=== PATIENT | female | born 1955 | race Caucasian/White ===

== ENCOUNTER → 2021-08-06 | Outpatient (CLI) | payer BC, OTHER ==
--- NOTE | 2021-08-06 11:37 | XR ---
EXAMINATION TYPE: XR ankle complete LT DATE OF EXAM: 08/06/2021 COMPARISON: None HISTORY: Nonhealing wound left ankle TECHNIQUE: 3 view left ankle FINDINGS: There is a ankle prosthesis present. Osseous structures appear intact. No acute fracture is identified. No suspicious cortical erosion is identified. In the oblique view medial portion of the distal fibula may have a lucency and Jori's abscess could be considered. Soft tissues appear normal . IMPRESSION: 1. Possible lucency within the distal fibula could be a Jori's abscess. 2. No additional areas suspicious for osteomyelitis is evident.
== END | disposition home or self-care (01) ==
LOC: RADXRMAIN 10:47
PROVIDERS: ATTEND Thoracic Surgery (Cardiothoracic Vascular Surgery)
DX: L97.329 Non-pressure chronic ulcer of left ankle with unspecified severity (principal)

== ENCOUNTER → 2021-08-13 | Outpatient (CLI) | payer OTHER ==
--- NOTE | 2021-08-20 10:36 | P.ARTDOP ---
Arterial Doppler LOWER EXTREMITY ARTERIAL DOPPLER: DATE OF SERVICE: 08/13/2021 Reason for study: Ulcer left ankle. Doppler waveforms: Multiphasic bilaterally throughout.. Pulse volume recording: []. Pressure gradients: Only at the foot level. Ankle-brachial indices: Greater than 1 bilaterally. Toe brachial indices: 0.46 on the right, [] on the left Impression: Findings suggest normal flow in major vessels. Suspect significant peripheral vasoconstriction. Diffuse distal disease less likely..
== END | disposition home or self-care (01) ==
LOC: RADUSWWP 10:09
PROVIDERS: ATTEND Thoracic Surgery (Cardiothoracic Vascular Surgery)
DX: L97.329 Non-pressure chronic ulcer of left ankle with unspecified severity (principal)
CPT/HCPCS: 93922

== ENCOUNTER → 2021-08-28 | Outpatient (CLI) | payer OTHER ==
--- NOTE | 2021-08-28 13:31 | NM ---
EXAMINATION TYPE: NM bone 3 phase DATE OF EXAM: 08/28/2021 COMPARISON: NONE HISTORY: L97.325 non pressure ulcer L ankle Triple phase bone scintigraphy was performed following the injection of 22.5 mCi Tc 99m MDP. Immedia te images and 5 hours post injection images acquired. FINDINGS: On all 3 phases of the study there is increased radiotracer about the distal left tibia about the pat ient's prosthesis. Periprosthetic infection is difficult to exclude. No fibular uptake seen. Mild deg enerative change noted about the bilateral mid feet and right ankle. IMPRESSION: On all 3 phases of the study there is increased radiotracer about the distal left tibia about the pat ient's prosthesis. Periprosthetic infection is difficult to exclude.
== END | disposition home or self-care (01) ==
LOC: RADNMMAIN 07:27
PROVIDERS: ATTEND Thoracic Surgery (Cardiothoracic Vascular Surgery)
DX: L97.325 Non-pressure chronic ulcer of left ankle with muscle involvement without evidence of necrosis (principal)
CPT/HCPCS: 78315; A9503

== ENCOUNTER → 2021-09-09 | Outpatient (CLI) | payer OTHER ==
[2021-09-09 20:24] LABS: Basophils # (A) 0.06 X 10*3/uL (0.00-0.10); Basophils % (A) 0.8 %; Eosinophils # (A) 0.29 X 10*3/uL (0.04-0.35); Eosinophils % (A) 3.7 %; HCT 35.7 % (37.2-46.3); HGB 10.2 g/dL (12.0-15.0); Lymphocytes # (A) 1.51 X 10*3/uL (0.90-5.00); Lymphocytes % (A) 19.2 %; MCH 21.8 pg (27.0-32.0); MCHC 28.6 g/dL (32.0-37.0); MCV 76.3 fL (80.0-97.0); Mean Platelet Volume 10.8 fL (9.5-12.2); Monocytes # (A) 0.49 X 10*3/uL (0.20-1.00); Monocytes % (A) 6.2 %; Neutrophils % (A) 69.8 %; Platelet Count 566 X 10*3/uL (140-440); RBC 4.68 X 10*6/uL (4.10-5.20); RDW 18.6 % (11.5-14.5); WBC 7.87 X 10*3/uL (4.50-10.00)
[2021-09-09 21:29] LABS: Erythrocyte Sedimentation Rate 37 mm/Hr (0-30)
== END | disposition home or self-care (01) ==
LOC: LABWHC1 13:23
PROVIDERS: ATTEND Orthopaedic Surgery Foot and Ankle Surgery
DX: Z47.1 Aftercare following joint replacement surgery (principal); M19.072 Primary osteoarthritis, left ankle and foot; T81.31XA Disruption of external operation (surgical) wound, not elsewhere classified, initial encounter; Z96.662 Presence of left artificial ankle joint; Y69 Unspecified misadventure during surgical and medical care
CPT/HCPCS: 36415; 85025; 85652; 86140

== ENCOUNTER → 2021-09-26 | Outpatient (CLI) | payer OTHER ==
--- NOTE | 2021-09-26 12:47 | CT ---
EXAMINATION TYPE: CT ankle LT wo/w con DATE OF EXAM: 09/26/2021 COMPARISON: Left ankle surgery May 2020 with persistent pain, nonhealing. HISTORY: Osteomyelitis CT DLP: 396.4 mGycm Automated exposure control for dose reduction was used. CONTRAST: Performed without and with IV Contrast, patient injected with 100 mL of Isovue 300. FINDINGS: Gambell osseous structures are demineralized. Metallic hardware in the distal tibia is present, additi onal metallic hardware in the talar dome. Both cause streak artifact. There is overlying gauze and ba ndage material anteriorly. There is focal defect or packing material in the anterior aspect of the di stal tibia. There is moderate heterogeneous soft tissue swelling surrounding this with some bony dest ruction involving the anterior aspect of the distal tibia. Bony destruction extends to the anterior p ortion of the distal tibial prosthesis axial image 33. This involves the anterior portion of the tibi al tray sagittal image 40. Radiolucent component prosthesis at level of the ankle mortise.. Incidental large inferior calcaneal spur. There is prominent vertical lucent component distal to the tibial component extending into the central calcaneus to the anterior subtalar joint could reflect pr oduct of old surgical change. No suspicious bony destruction in the fibula or the talus. Moderate narrowing at the talonavicular james int incidentally seen. IMPRESSION: Open soft tissue the anterior distal tibia with surrounding soft tissue swelling, there i s bony destruction extending to the prosthesis suspicious for infectious process or osteomyelitis.
== END | disposition home or self-care (01) ==
LOC: RADCTMAIN 11:08
PROVIDERS: ATTEND Orthopaedic Surgery Foot and Ankle Surgery
DX: M79.89 Other specified soft tissue disorders (principal); M25.572 Pain in left ankle and joints of left foot; Z96.662 Presence of left artificial ankle joint
CPT/HCPCS: 73702; Q9967

== ENCOUNTER 2021-10-22 13:42 | Day surgery (SDC) | payer OTHER ==
[2021-10-21 12:27] VITALS: BMI 23.3
[~2021-10-22 13:42] MED LIST: LACTATED RINGERS 1,000 ML IV SCH; LIDOCAINE 1% (10MG/ML) FOR IV START INTRADERMA PRN
[2021-10-22 14:25] VITALS: TEMP 98
[2021-10-22] MEDS ORDERED: LIDOCAINE 1% INJ 10MG/ML (20 ML MDV) SQ ONE (14:40)
--- NOTE | 2021-10-22 16:43 | IR ---
EXAMINATION TYPE: IR cvc insert >=5 years DATE OF EXAM: 10/22/2021 COMPARISON: NONE CLINICAL HISTORY: Infection Needs long-term intravenous access for antibiotics. PROCEDURE: Hand hygiene obtained with soap and water and alcohol-based hand rub. After informed consent, the skin overlying the right basilic vein was localized with ultrasound and n oted to be compressible and patent. An ultrasound image was obtained and submitted on the patient's chart. The overlying skin was prepped and draped and Lidocaine was used for local anesthesia. A ski n domingo was made with a scalpel. Access was gained to the vein under ultrasound guidance with a 21 ga uge needle and a 0.018 inch wire was advanced. Access site was dilated with Peel-Away sheath and cat heter tailored to the appropriate length and advanced such that the distal tip is at the cavoatrial j unction. Spot image was obtained verifying placement. Catheter was fixed to the skin and a sterile dressing was placed following hemostasis. Catheter was aspirated and flushed with saline. Patient w as discharged in stable condition without complication.Maximal barrier technique is utilized. Ultras ound image is documented on the chart. Ultrasound used with sterile technique. Fluoro time and fluoroscopic images submitted to document procedure: 39 intraoperative C-arm images, 0.1 minutes fluoroscopy time IMPRESSION: STATUS POST ULTRASOUND AND FLUOROSCOPIC GUIDED PICC LINE PLACEMENT, READY FOR USE. THIS PROCEDURE WAS PERFORMED BY THE UNDERSIGNED.
[2021-10-22 19:27] VITALS: BP 103/57; PULSE 71; RESP 16
== END 2021-10-22 16:28 | disposition home or self-care (01) ==
LOC: CATHCVL 13:42
PROVIDERS: ATTEND Radiology Diagnostic Radiology
DX: T81.40XA Infection following a procedure, unspecified, initial encounter (principal); M00.9 Pyogenic arthritis, unspecified; Y83.8 Other surgical procedures as the cause of abnormal reaction of the patient, or of later complication, without mention of misadventure at the time of the procedure; Z20.822 Contact with and (suspected) exposure to COVID-19
CPT/HCPCS: 36573; 87635; C1751; C1769; J2001

== ENCOUNTER → 2022-03-13 | Day surgery (SDC) | payer OTHER ==
[~2022-03-13] MED LIST changes: +KETAMINE 10 MG/ML 20 ML VIAL ONE; -LIDOCAINE 1% (10MG/ML) FOR IV START INTRADERMA PRN; +LIDOCAINE 2% INJ 20 MG/ML (2 ML VIAL) ONE; +PROPOFOL 10 MG/ML 50 ML VIAL IV ONE
[2022-03-13 06:48] VITALS: RESP 18; TEMP 99
--- NOTE | 2022-03-13 07:49 | P.PCN ---
Date of Procedure: 03/13/22 Procedure(s) Performed: Brief history: Patient is a pleasant 66-year-old white female scheduled for an elective upper endoscopy as well as colonoscopy as a part of evaluation of Of GERD/family history of esophageal cancer and prior history of colon polyps Procedure performed: Esophagogastroduodenoscopy with biopsy Colonoscopy Preoperative diagnosis: GERD and family history of esophageal cancer History of colon polyps Anesthesia: MAC Procedure: After informed consent was obtained from the patient was brought into the endoscopy unit and IV sedation was administered by anesthesia under continuous monitoring. Initially upper endoscopy was done. The Olympus GF 160 video endoscope was inserted inserted into the mouth and esophagus intubated without any difficulty and was gradually advanced into the stomach and duodenum and carefully examined. The bulb and second part of the duodenum appeared normal. The scope was then withdrawn into the stomach adequately insufflated with air and upon careful examination there was early pyloric stenosis but I was able to advance the scope into the duodenum. Mucosa of the the antrum had mild gastritis and biopsies were done from this area. Along the greater curvature in the distal body the stomach there was scarring noted from previous ulcerations. Rest of the body, cardia and fundus appeared normal. The scope was then withdrawn into the esophagus. Under size hiatal hernia noted. The GE junction was located at 35 cm to the incisors. 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 There were no erosions or ulcerations. Rest of the esophagus appeared normal. Patient tolerated the procedure well. At this time the patient continued to remain sedation. Initial digital rectal examination was normal. Olympus CF 160 video pediatric colonoscope was then inserted into the rectum and gradually advanced to the cecum with severe difficulty. Careful examination was performed as the scope was gradually being withdrawn. The prep was excellent. The cecum, ascending colon, transverse colon, descending colon, sigmoid colon and rectum appeared normal. Retroflexion was performed in the rectum and no lesions were noted. Patient tolerated the procedure well. Impression: 1. 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 Colonoscopy was within normal limits with no evidence of colorectal neoplasia. Recommendations: Findings of this examination were discussed with the patient as well as her family. She was advised to follow with the biopsy results. If the biopsies confirm the presence of Og's esophagus he can have a repeat upper endoscopy in 2-3 years. She can have a repeat colonoscopy in 5 years from now because of the prior history of colon polyps.
[2022-03-13 08:08] VITALS: BP 150/88; PULSE 78
== END ==
LOC: ORWHC2ENDO 06:20
PROVIDERS: ATTEND Internal Medicine Gastroenterology
DX: K22.70 Barrett's esophagus without dysplasia (principal); K29.50 Unspecified chronic gastritis without bleeding; K31.1 Adult hypertrophic pyloric stenosis; K44.9 Diaphragmatic hernia without obstruction or gangrene; I10 Essential (primary) hypertension; K21.9 Gastro-esophageal reflux disease without esophagitis; Z80.0 Family history of malignant neoplasm of digestive organs; Z88.2 Allergy status to sulfonamides; Z79.899 Other long term (current) drug therapy
CPT/HCPCS: 43239; 88305; J2704; J2001; G0121

== ENCOUNTER → 2024-03-28 | Outpatient (CLI) | payer MEDICARE, OTHER ==
--- NOTE | 2024-03-28 17:33 | CT ---
EXAMINATION TYPE: CT shoulder LT wo con CT DLP: 255 mGycm, Automated exposure control for dose reduction was used. DATE OF EXAM: 03/28/2024 4:52 PM COMPARISON: None CLINICAL INDICATION:Female, 68 years old with history of S42.242A 4-PART FRACTURE OF SURGICAL NECK OF LEFT; [facility], Fall x 2 weeks ago, presurgical planning left shoulder TECHNIQUE: Axial images were obtained of the CT shoulder LT wo con, Additional coronal and sagittal r eformatted images and soft tissue and bone window were obtained for review. 3-D reconstruction was cr eated on a separate workstation. Contrast used: mL of , (None if empty) Oral contrast used: (None if empty) FINDINGS: There is comminuted fractures of the proximal left humerus without intra-articular extensio n definitively visualized. This involves the surgical neck. There is lateral angulation. The glenoid and scapula appears intact. There is soft tissue swelling. The remainder of the visualized chest lung s and heart are grossly unremarkable. IMPRESSION: Comminuted fracture of the left proximal humerus surgical neck with lateral angulation.
== END | disposition home or self-care (01) ==
LOC: RADCTMAIN 16:14
PROVIDERS: ATTEND Orthopaedic Surgery
DX: S42.242A 4-part fracture of surgical neck of left humerus, initial encounter for closed fracture (principal)